=== PATIENT | female | born 1985 | race Two or more races ===

== ENCOUNTER 2020-11-22 09:33 | Emergency (ER) | payer MEDICAID ==
[~2020-11-22] VITALS: Ht 154.9 cm; Wt 50.0 kg
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
--- NOTE | 2020-11-22 10:25 | NUR ---
assumed care of pt. report from Marlys GONZALEZ. pt is agitated and restless, with multiple anxiety complaints and flight of ideas. pt is intermittently tearful and states that her bed is moving on it's own. pt has wandered out of her room twice and is agitated in the hallway. pt in secured room. pt has been undressed and placed in gown. sitte present for safety. pt denies SI/HI. no family present
[2020-11-22] MEDS ORDERED: LORazepam 1MG TABLET PO ONE (10:30)
[2020-11-22 10:56] LABS: BASOPHILS % (AUTO) 1 % (0-1); EOSINOPHILS % (AUTO) 1 % (1-7); LYMPHOCYTES % (AUTO) 23 % (22-44); MEAN CORPUSCULAR HEMOGLOBIN 27.9 pg (27.0-34.8); MEAN CORPUSCULAR HGB CONC 33.2 g/dL (32.4-35.8); MEAN PLATELET VOLUME 7.8 fL (7.4-10.4); MONOCYTES % (AUTO) 12 % (2-9); NEUTROPHILS % (AUTO) 63 % (42-75); PLATELET COUNT 328 x10^3/uL (130-400); RED CELL DISTRIBUTION WIDTH 15.8 % (9.6-15.2)
[2020-11-22 11:04] LABS: ALANINE AMINOTRANSFERASE 16 U/L (12-78); ALBUMIN 3.3 g/dL (3.4-5.0); ANION GAP 4 mmol/L (5-15); CALCIUM 9.5 mg/dL (8.5-10.1); CHLORIDE 107 mmol/L (98-107); CREATININE 0.79 mg/dL (0.55-1.02); SALICYLATE LEVEL 2.7 mg/dL (2.8-20.0)
[2020-11-22 11:07] LABS: MD NO
[2020-11-22 11:09] LABS: ALKALINE PHOSPHATASE 55 U/L (45-117); BILIRUBIN,TOTAL 0.1 mg/dL (0.2-1.0); TOTAL PROTEIN 6.7 g/dL (6.4-8.2)
[2020-11-22] MEDS ORDERED: LORazepam 1MG TABLET ONE (11:09)
[2020-11-22 11:14] LABS: MICROSCOPIC INDICATED
[2020-11-22 11:25] LABS: AMPHETAMINE SCREEN, URINE Positive (Negative); BARBITURATE SCREEN, URINE Negative (Negative); BENZODIAZEPINE SCREEN, URINE Negative (Negative); CANNABINOID SCREEN, URINE Positive (Negative); COCAINE SCREEN, URINE Negative (Negative); METHADONE SCREEN, URINE Negative (Negative); OPIATE SCREEN, URINE Negative (Negative)
--- NOTE | 2020-11-22 11:30 | NUR ---
resting on gurney in position of comfort. room secured. sitter present for safety
--- NOTE | 2020-11-22 11:52 | NUR ---
report to Stephie GONZALEZ for lunch
--- NOTE | 2020-11-22 12:50 | NUR ---
pt sleeping in position of comfort. no apparent distress. pt is not currently on a hold
--- NOTE | 2020-11-22 13:41 | NUR ---
pt continues sleeping in position of comfort. no apparent distress.
--- NOTE | 2020-11-22 14:30 | NUR ---
pt sleeping. respirations even and unlabored
--- NOTE | 2020-11-22 15:20 | NUR ---
no changes. pt slepeing in position of comfort. no apparent distress
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
[2020-11-22 16:12] VITALS: BP 99/64
== END 2020-11-22 16:16 | disposition home or self-care (01) ==
LOC: ED 16:00
DX: F41.1 Generalized anxiety disorder (principal); F12.10 Cannabis abuse, uncomplicated; F15.150 Other stimulant abuse with stimulant-induced psychotic disorder with delusions; F17.200 Nicotine dependence, unspecified, uncomplicated
CPT/HCPCS: 36415; 80053; 80299; 80307; 80320; 80329; 81001; 84703; 85025; 87086; 99283; G0480

== ENCOUNTER 2020-12-21 12:59 | Emergency (ER) | payer MEDICAID ==
[~2020-12-21] VITALS: Ht 157.5 cm; Wt 50.1 kg
[2020-12-21 13:02] VITALS: BP 120/60
--- NOTE | 2020-12-21 15:34 | NUR ---
no answer when called from dena
--- NOTE | 2020-12-21 15:52 | NUR ---
no answer when called from dena
--- NOTE | 2020-12-21 16:34 | NUR ---
3rd call- no answer by patient. Pt kendall
== END 2020-12-21 16:37 | disposition left against medical advice (07) ==
LOC: ED 16:36
DX: M54.5 Low back pain (principal); R10.30 Lower abdominal pain, unspecified
CPT/HCPCS: 99281